=== PATIENT | male | born 1960 | race Caucasian/White ===

== ENCOUNTER → 2016-06-02 | Outpatient (CLI) | payer BC | LOC: GMAJ 10:55 | PROVIDERS: ATTEND Family Medicine | DX: I10 Essential (primary) hypertension (principal) ==

== ENCOUNTER → 2017-07-04 | Outpatient (CLI) | payer BC | LOC: GMAJ 11:23 | PROVIDERS: ATTEND Family Medicine | DX: Z00.00 Encounter for general adult medical examination without abnormal findings (principal) ==

== ENCOUNTER 2018-10-30 09:35 | Emergency (ER) | payer BC ==
--- NOTE | 2018-10-30 09:56 | ED.PDOC ---
History of Present Illness - General Chief Complaint: Chest Pain/[place] Stated Complaint: Chest discomfort, light-headed Time Seen by Provider: 10/30/18 09:35 Source: patient, RN notes reviewed Additional Information: 58 YEAR OLD WHITE MALE PRESENTS WITH CHEST PRESSURE / PAIN DIZZINESS FELT LIKE HE WAS GOING TO PASS OUT THE PRESSURE /DISCOMFORT HE DESCRIBED LASTED LESS THAN A MIN HE CHECKED HIS BLOOD PRESSURE AT THAT TIME IT WAS 156/ 86 HE HAS TAKEN HIS LISINOPRIL JUST SHORTLY PRIOR TO THIS EVENT HE DIS NOT EXPERIENCE ANY HEADACHE NO SHORTNESS OF BREATH NO ABDOMINAL PAIN BUT REPORTS FEW EPISODES OF DIARRHEA PMH HE HAS HTN HAD A CARDIAC CATH 12 YEARS AGO AT [facility] THAT SHOWED MINIMAL DISEASE HE HAS BEEN ON CARVIDALOL ATORVASTATIN AND ASPIRIN HE USED TO BE A HEAVY SMOKER HE STATES HE WORKS AT THE [employer] AND DAYS OFF HE EXERCISED BUT NEVER HAVE EXPERIENCED CHEST PAIN DURING EXERTION HE REPORTS NO ORTHOPNEA NO PND - History of Present Illness Timing/Duration: 1/2 hour Severity: moderate Improving Factors: nothing Associated Symptoms: chest pain, weakness Allergies/Adverse Reactions: Allergies NO KNOWN ALLERGY Allergy (Verified 10/30/18 09:43) Review of Systems - Review of Systems Constitutional: States: see HPI EENTM: States: no symptoms reported Respiratory: States: no symptoms reported Cardiology: States: see HPI Gastrointestinal/Abdominal: States: no symptoms reported Genitourinary: States: no symptoms reported Musculoskeletal: States: no symptoms reported Skin: States: no symptoms reported Neurological: States: no symptoms reported Endocrine: States: no symptoms reported Hematologic/Lymphatic: States: no symptoms reported Past Medical History (General) - Patient Medical History Hx Stroke: No Hx Asthma: Yes - Seasonal allergies Hx Cardiac Disorders: Yes - high cholesterol Hx Congestive Heart Failure: No Hx Hypertension: Yes Hx Diabetes: Yes Hx MRSA: No - Vaccination History Hx Tetanus, Diphtheria Vaccination: Yes - 2016 Hx Influenza Vaccination: Yes - 2018 Hx Pneumococcal Vaccination: Yes - Social History Hx Tobacco Use: Yes - Quit in 2007 Hx Alcohol Use: Yes - Occasional Family Medical History - Family History Father Living Status: Hx Family Congestive Heart Failure: Yes Physical Exam - Physical Exam General Appearance: Alert, Comfortable Eye Exam: bilateral normal Ears, Nose, Throat: hearing grossly normal, normal ENT inspection, normal pharynx Neck: non-tender, full range of motion, supple Respiratory: chest non-tender, lungs clear, normal breath sounds, no respiratory distress Cardiovascular/Chest: normal peripheral pulses, regular rate, rhythm, no edema, no gallop, no JVD Gastrointestinal/Abdominal: normal bowel sounds, non tender, soft, no organomegaly, no pulsatile mass Back Exam: normal inspection, no CVA tenderness, no vertebral tenderness Neurologic: coutierier II-XII nml as tested, no motor/sensory deficits, alert, normal mood/affect, oriented x 3 Progress - Results/Orders Results/Orders: Laboratory Tests 10/30/18 10/30/18 10:28 12:45 WBC 9.6 RBC 4.89 Hgb 15.4 Hct 45.6 MCV 93.2 MCH 31.5 H MCHC 33.8 RDW 13.3 Plt Count 253 MPV 7.9 Absolute Neuts (auto) 5.80 Absolute Lymphs (auto) 2.50 Absolute Monos (auto) 0.50 Absolute Eos (auto) 0.60 H Absolute Basos (auto) 0.10 Neutrophils % 60.8 Lymphocytes % 26.1 Monocytes % 5.7 Eosinophils % 6.5 H Basophils % 0.9 PT 9.7 INR 0.97 PTT (SP) 25.6 Sodium 134 L Potassium 4.1 Chloride 99 L Carbon Dioxide 24 Anion Gap 15.1 BUN 25 H Creatinine 0.83 BUN/Creatinine Ratio 30.1 H Random Glucose 218 H Serum Osmolality 279.3 Calcium 9.5 Magnesium 1.8 Creatine Kinase 142 CK-MB (CK-2) 5.0 H* CK-MB (CK-2) % Not Reportable Troponin I 0.04 0.05 B-Natriuretic Peptide 51.2 THE EKG WAS COMPARED TO OLD EKG 08 22 12 NO SIGNIFICANT CHANGES NOTED PATIENT HAS HAD NO SYMPTOMS HERE IN THE ED 2 SETS OF TROP AT 2 HOUR INTERVAL NEG LOW PROBABILITY FOR ACS AT THIS TIME THIS WAS EXPLAINED AND HE WAS DISCHARGED HOME WITH APPROPRIATE ADVICE Departure - Departure Clinical Impression: Chest pain Time of Disposition: 14:22 Disposition: Discharge to Home or Self Care Condition: Good Departure Forms: ED Discharge - Pt. 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
--- NOTE | 2018-10-30 10:30 | RAD ---
Portable chest INDICATION: Chest pain IMPRESSION: Cardiomegaly borderline for technique. Very mild vascular congestion. No florid failure. No focal infiltrate effusion or pneumothorax. Electronically signed by: French Oneal MD 10/30/2018 10:28 AM CDT
[2018-10-30 11:57] VITALS: TEMP 96.5
[2018-10-30 14:40] VITALS: BP 124/85; O2SAT 95
== END 2018-10-30 14:28 | disposition home or self-care (01) ==
LOC: ER 09:35
DX: R07.89 Other chest pain (principal); R42 Dizziness and giddiness; R53.1 Weakness; J45.909 Unspecified asthma, uncomplicated; E78.00 Pure hypercholesterolemia, unspecified; I10 Essential (primary) hypertension; E11.9 Type 2 diabetes mellitus without complications; Z79.899 Other long term (current) drug therapy; Z87.891 Personal history of nicotine dependence

== ENCOUNTER → 2018-11-08 | Outpatient (CLI) | payer BC ==
--- NOTE | 2018-11-08 16:13 | CT ---
EXAM: CT Head Without Intravenous Contrast CLINICAL HISTORY: 58 years old and is Male; Dizziness TECHNIQUE: Axial computed tomography images of the head/brain without intravenous contrast. Sagittal and coronal reformatted images were created and reviewed. This CT exam was performed using one or more of the following dose reduction techniques: automated exposure control, adjustment of the mA and/or kV according to patient size, and/or use of iterative reconstruction technique. COMPARISON: No relevant prior studies available. FINDINGS: Limitations: None. Brain: Unremarkable. No hemorrhage. No significant white matter disease. No edema. Ventricles: Unremarkable. No ventriculomegaly. Bones/joints: Unremarkable. No acute fracture. Soft tissues: Unremarkable. Sinuses: Minimal chronic left sphenoid sinus thickening noted. Mastoid air cells: Unremarkable as visualized. No mastoid effusion. IMPRESSION: Chronic changes as above. No acute disease. Electronically signed by: Yaritza Peñaloza MD 11/08/2018 4:11 PM CDT
== END ==
LOC: CT 15:45
PROVIDERS: ATTEND Family Medicine
DX: J32.3 Chronic sphenoidal sinusitis (principal)

== ENCOUNTER 2019-01-17 17:32 | Emergency (ER) | payer BC ==
[2019-01-17] MEDS ORDERED: SODIUM CHLORIDE 0.9% (FLUSH) 10 ML SYG IV PRN (17:49)
--- NOTE | 2019-01-17 17:57 | ED.PDOC ---
History of Present Illness - General Stated Complaint: chest tightness and palpitations Time Seen by Provider: 01/17/19 17:49 Source: patient, RN notes reviewed, Vital Signs reviewed Exam Limitations: no limitations - History of Present Illness Timing/Duration: 1-3 hours Severity/Quality: moderate, tightness Location: central Chest Pain Radiation: no radiation Activities at Onset: activity Prior Chest Pain/Cardiac Workup: cardiac cath, stress test Improving Factors: medication - ntg, rest Nitro Today/Relief: 0.4 mg x 1, complete relief Aspirin Treatment Today: no aspirin today Associated Symptoms: denies symptoms Allergies/Adverse Reactions: Allergies NO KNOWN ALLERGY Allergy (Verified 01/17/19 18:04) Review of Systems - Review of Systems Constitutional: States: no symptoms reported EENTM: States: no symptoms reported Respiratory: States: no symptoms reported Cardiology: States: see HPI, palpitations Gastrointestinal/Abdominal: States: no symptoms reported Genitourinary: States: no symptoms reported Musculoskeletal: States: no symptoms reported Skin: States: no symptoms reported Neurological: States: no symptoms reported Endocrine: States: no symptoms reported Hematologic/Lymphatic: States: no symptoms reported All other Systems: Reviewed and Negative Past Medical History (General) - Patient Medical History Hx Stroke: No Hx Asthma: Yes - Seasonal allergies Hx Cardiac Disorders: Yes - high cholesterol Hx Congestive Heart Failure: No Hx Hypertension: Yes Hx Diabetes: Yes Hx MRSA: No - Vaccination History Hx Tetanus, Diphtheria Vaccination: Yes - 2015 Hx Influenza Vaccination: Yes - 2018 Hx Pneumococcal Vaccination: Yes - Social History Hx Tobacco Use: Yes - Quit in 2007 Hx Alcohol Use: Yes - Occasional Family Medical History - Family History Father Living Status: Hx Family Congestive Heart Failure: Yes Mother Living Status: Hx Family Cancer: Yes - Lung Physical Exam - Physical Exam General Appearance: Alert, Comfortable, Obese, Well Developed, Well Groomed, Well Hydrated, Well Nourished Eyes, Ears, Nose, Throat Exam: PERRL/EOMI, pharynx normal Neck: non-tender, full range of motion, supple, normal inspection Respiratory: chest non-tender, lungs clear, normal breath sounds, no respiratory distress, no accessory muscle use Cardiovascular/Chest: normal peripheral pulses, regular rate, rhythm, no edema, no gallop, no JVD, no murmur Gastrointestinal/Abdominal: normal bowel sounds, non tender, soft Extremity: normal range of motion, non-tender, normal inspection Neurologic: corporate vp advertising & online II-XII nml as tested, no motor/sensory deficits, alert, normal mood/affect, oriented x 3 Skin Exam: normal color, warm/dry Progress - Progress Progress: 01/17/19 21:12 ekg @ 1740 hrs: SR with 1deg AV block,LAD, LVH, ant/laterad, Inf infarct Age indeterminate abnormal ekg, unchanged from 10/30/2018 Pt also with elevated troponin. Plan admission. d/w pt and his and they voice understanding and agreement. Anish Shannon M.D. #[id number] - EKG/XRAY/CT Comments: abnormal ekg unchanged from 10/30/18 Departure - Departure Clinical Impression: Elevated troponin I level, Intermittent palpitations Time of Disposition: 23:49 Disposition: Transfer to Hospital Condition: Good Referrals: Kg Givens MD [Primary Care Provider] - 1-2 Weeks
--- NOTE | 2019-01-17 18:38 | RAD ---
EXAM: XR Chest, 1 View CLINICAL HISTORY: palpitations TECHNIQUE: Frontal view of the chest. COMPARISON: 10/30/2018. FINDINGS: Limitations: None. Lungs: Unremarkable. No consolidation. Pleural space: Unremarkable. No pneumothorax. Heart: Stable prominent cardiac shadow. Mediastinum: Unremarkable. Bones/joints: Unremarkable. IMPRESSION: No acute findings. Electronically signed by: Yaritza Peñaloza MD 01/17/2019 6:36 PM CDT
[2019-01-17] MEDS ORDERED: ASPIRIN (CHEWABLE) 81 MG TAB PO ONE (19:03)
[2019-01-18 00:07] VITALS: BP 124/80; TEMP 97; O2SAT 96
== END 2019-01-18 00:14 | disposition short-term general hospital (02) ==
LOC: ER 17:32
DX: R00.2 Palpitations (principal); R79.89 Other specified abnormal findings of blood chemistry; R94.31 Abnormal electrocardiogram [ECG] [EKG]; I44.0 Atrioventricular block, first degree; I51.7 Cardiomegaly; E66.9 Obesity, unspecified; E78.00 Pure hypercholesterolemia, unspecified; I10 Essential (primary) hypertension; E11.9 Type 2 diabetes mellitus without complications; J45.909 Unspecified asthma, uncomplicated; Z87.891 Personal history of nicotine dependence; Z68.41 Body mass index [BMI] 40.0-44.9, adult

== ENCOUNTER 2019-02-05 09:08 | Emergency (ER) | payer BC ==
[2019-02-05 09:32] VITALS: TEMP 97.2
[2019-02-05] MEDS: ASPIRIN TABLET 325 MG TAB PO ONE ×2 (09:41→09:52)
--- NOTE | 2019-02-05 09:52 | ED.PDOC ---
History of Present Illness - General Chief Complaint: Cardiovascular Problem Stated Complaint: Dizziness, low heart rate Time Seen by Provider: 02/05/19 09:17 Source: patient Exam Limitations: no limitations - History of Present Illness Initial Comments: the patient is a 58-year-old male presenting to the emergency room this morning secondary to continued shortness of breath and generalized weakness. Symptoms started yesterday afternoon when the patient was walking around the track. Symptoms started with a feeling of palpitations. No real chest pain. He did have a near syncopal episode. When he is at rest he feels okay however when he gets up to move around he feels short of breath and a little bit dizzy. His blood pressure cuff at home was having a hard time measuring his blood pressures last night and this morning so he presented here for further evaluation. The patient was actually seen here about 3 weeks ago and sent to [facility] due to a mild troponin leak and uncontrolled hypertension. Apparently isosorbide was started on the patient after that visit. The patient does have a history of coronary artery disease. He sees Dr. Holland. the patient appears comfortable at rest here. Telemetry monitoring is showing a wide complex regular bradycardia at 30 bpm with a complete third degree AV block.the patient took a full dose aspirin before arriving here this morning. He also did not take his blood pressure medicines this morning. Timing/Duration: other - about 16 hours Severity: moderate Improving Factors: rest Worsening Factors: movement Associated Symptoms: malaise, shortness of breath, weakness Allergies/Adverse Reactions: Allergies NO KNOWN ALLERGY Allergy (Verified 01/17/19 18:04) Review of Systems - Review of Systems Constitutional: States: malaise, weakness - generalized EENTM: States: no symptoms reported Respiratory: States: short of breath Cardiology: States: palpitations Gastrointestinal/Abdominal: States: no symptoms reported Genitourinary: States: no symptoms reported Musculoskeletal: States: no symptoms reported Skin: States: no symptoms reported Neurological: States: no symptoms reported Endocrine: States: no symptoms reported All other Systems: No Change from Baseline Past Medical History (General) - Patient Medical History Hx Stroke: No Hx Asthma: Yes - Seasonal allergies Hx of COPD: No Hx Cardiac Disorders: Yes - Dyslipidemia Hx Congestive Heart Failure: No Hx Hypertension: Yes Hx Diabetes: Yes Hx Gastroesophageal Reflux: No Hx Cancer: No Hx MRSA: No - Vaccination History Hx Tetanus, Diphtheria Vaccination: Yes - 2016 Hx Influenza Vaccination: Yes - 2018 Hx Pneumococcal Vaccination: Yes - Social History Hx Tobacco Use: No Hx Alcohol Use: No Hx Substance Use: No Hx Substance Use Treatment: No Hx Depression: No - Female History Patient : No Family Medical History - Family History Father Living Status: Hx Family Congestive Heart Failure: Yes Mother Living Status: Hx Family Cancer: Yes - Lung Physical Exam - Physical Exam General Appearance: Alert, Comfortable - he does appear slightly pale., No apparent distress Eye Exam: bilateral normal Ears, Nose, Throat: hearing grossly normal, normal ENT inspection Neck: full range of motion, supple Respiratory: lungs clear, normal breath sounds, no respiratory distress, no accessory muscle use Cardiovascular/Chest: normal peripheral pulses, no edema, other - regular 30 bpm. Peripheral Pulses: radial,right: 2+, radial,left: 2+, dorsalis pedis,right: 2+, dorsalis pedis,left: 2+ Gastrointestinal/Abdominal: non tender - obese, soft Rectal Exam: deferred Back Exam: no CVA tenderness, no vertebral tenderness Extremity: normal range of motion, non-tender, normal inspection, no pedal edema, normal capillary refill Neurologic: turbinated bone grinder II-XII nml as tested, alert, normal mood/affect, oriented x 3 Skin Exam: pallor - mild Comments: Vital Signs - 24 hr 02/05/19 02/05/19 02/05/19 09:11 09:18 09:29 Temperature 97.2 F L Pulse Rate [ 47 L 29 L 29 L Apical] Respiratory 20 Rate Blood Pressure 122/74 [Left Arm] O2 Sat by Pulse 97 Oximetry 02/05/19 09:47 Temperature Pulse Rate [ Apical] Respiratory Rate Blood Pressure [Left Arm] O2 Sat by Pulse 93 L Oximetry Progress - Progress Progress: 02/05/19 10:19 the patient is a 58-year-old male presenting with a third-degree heart block with a regular wide complex escape rhythm at 30 bpm, that likely started yesterday afternoon. He does have some mild congestive heart failure signs on his chest x-ray. He is not hypoxic but I'm placing him on low flow oxygen anyway. His blood pressure medications have been held. By recommendations of his cardiology group he is receiving 1 dose of glucagon as a trial as the patient has been taking Coreg. Troponin is very slightly elevated. It was very slightly elevated 3 weeks ago as well. He is not having any chest pain. He is not in any distress at this time. He is largely asymptomatic when he is not up and moving around. The patient is going to transfer to [facility] for further cardiology evaluation and intervention. Pacing pads are in place in case they become necessary. Atropine, epinephrine or dopamine can also be used if necessary. At this point they are not required. He did receive an aspirin here. I'm not going to add additional blood thinners at this time as there is no definitive acute coronary syndrome and he is possibly going to need a pacemaker placed. Mild elevation of LFTs and mild worsening of renal function are likely testament to poor cardiac output. These will need to be followed as the problem is corrected. transferring for higher level of care. call made for transfer to [facility] at 1005. Critical care time spent excluding otherwise billable procedures is 40 minutes. 02/05/19 10:24 laquita cordon [id number] 02/05/19 10:33 02/05/19 11:14 update,the patient is about to leave for [facility]. He is still largely asymptomatic. Glucagon did not do anything to correct the rhythm. Blood pressures have been slowly but steadily increasing. This is likely his daily blood pressure medications wearing off. slight delay in transfer has been due to availability of EMS. Patient appears stable enough at this time to be transferred by ground. He does have pacer pads in place in case they become necessary. EMS does have epinephrine and atropine available if necessary. - Results/Orders Results/Orders: EKG shows a wide complex rhythm at 30 bpm with a complete third degree AV block. Difficult to interpret otherwise. Significantly different from his EKG from 3 weeks ago. chest x-ray does show some cardiomegaly and pulmonary vascular congestion. Laboratory Results - last 24 hr 02/05/19 02/05/19 02/05/19 09:30 09:30 09:30 WBC 10.7 RBC 4.63 L Hgb 14.7 Hct 43.3 MCV 93.6 MCH 31.8 H MCHC 34.0 RDW 13.7 Plt Count 260 MPV 8.2 Absolute Neuts (auto) 6.50 Absolute Lymphs (auto) 3.10 Absolute Monos (auto) 0.70 Absolute Eos (auto) 0.30 Absolute Basos (auto) 0.20 H Neutrophils % 60.8 Lymphocytes % 29.0 Monocytes % 6.1 Eosinophils % 2.6 Basophils % 1.5 PT 9.9 INR 0.99 PTT (SP) 26.7 D-Dimer, Quantitative 0.51 H* Sodium 133 L Potassium 4.2 Chloride 99 L Carbon Dioxide 21 Anion Gap 17.2 BUN 51 H Creatinine 1.68 H BUN/Creatinine Ratio 30.4 H Random Glucose 198 H Serum Osmolality 285.6 Calcium 9.1 Magnesium Total Bilirubin 0.7 AST 110 H ALT 116 H Alkaline Phosphatase 61 Creatine Kinase 229 H* CK-MB (CK-2) 6.3 H* CK-MB (CK-2) % 2.75 Troponin I 0.07 H* B-Natriuretic Peptide 290.0 H* Serum Total Protein 7.2 Albumin 3.9 Globulin 3.3 Albumin/Globulin Ratio 1.2 02/05/19 09:30 WBC RBC Hgb Hct MCV MCH MCHC RDW Plt Count MPV Absolute Neuts (auto) Absolute Lymphs (auto) Absolute Monos (auto) Absolute Eos (auto) Absolute Basos (auto) Neutrophils % Lymphocytes % Monocytes % Eosinophils % Basophils % PT INR PTT (SP) D-Dimer, Quantitative Sodium Potassium Chloride Carbon Dioxide Anion Gap BUN Creatinine BUN/Creatinine Ratio Random Glucose Serum Osmolality Calcium Magnesium 2.2 Total Bilirubin AST ALT Alkaline Phosphatase Creatine Kinase CK-MB (CK-2) CK-MB (CK-2) % Troponin I B-Natriuretic Peptide Serum Total Protein Albumin Globulin Albumin/Globulin Ratio Departure - Departure Clinical Impression: Third degree heart block, Bradycardia Congestive heart failure Qualifiers: Heart failure type: unspecified Heart failure chronicity: acute Qualified Code(s): I50.9 - Heart failure, unspecified Acute renal failure Qualifiers: Acute renal failure type: unspecified Qualified Code(s): N17.9 - Acute kidney failure, unspecified Disposition: Transfer to Hospital Departure Forms: ED Discharge - Pt. Copy, Patient Portal Self Enrollment Instructions: DI for Chest Pain Referrals: Kg Givens MD [Primary Care Provider] - 1-2 Weeks Transfer to Outside Facility - Transfer Information Accepting Provider:: dr weaver Accepting Facility: [facility] Reason for Transfer: required specialist not available
--- NOTE | 2019-02-05 09:58 | RAD ---
EXAM DESCRIPTION: Chest,1 View CLINICAL HISTORY: Shortness of breath, weakness COMPARISON: Test radiograph dated January 17, 2019 TECHNIQUE: Single upright portable frontal view of the chest FINDINGS: Cardiac silhouette shows cardiomegaly with central pulmonary vascular congestion. Subtle increased airspace opacities in the bilateral lower lung zones may represent early pulmonary edema. Underlying infiltrate cannot be entirely excluded. No significant pleural effusion. No pneumothorax. No acute osseous abnormality. IMPRESSION: 1. Cardiomegaly with central pulmonary vascular congestion, compatible with congestive heart failure. 2.Subtle increased airspace opacities bilateral lower lung zones most likely represent early pulmonary edema. Underlying infiltrate cannot be entirely excluded. Electronically signed by: Maksim Rios MD 02/05/2019 9:56 AM CDT
[2019-02-05] MEDS ORDERED: GLUCAGON INJ 1 MG VIAL ONE (10:17)
[2019-02-05] MEDS ORDERED: GLUCAGON INJ 1 MG VIAL IV ONE (10:52)
[2019-02-05 11:49] VITALS: BP 122/60; O2SAT 96
== END 2019-02-05 11:10 | disposition short-term general hospital (02) ==
LOC: ER 09:08
DX: I44.2 Atrioventricular block, complete (principal); R00.1 Bradycardia, unspecified; I50.9 Heart failure, unspecified; N17.9 Acute kidney failure, unspecified; R06.02 Shortness of breath; E11.9 Type 2 diabetes mellitus without complications; I11.0 Hypertensive heart disease with heart failure; J45.909 Unspecified asthma, uncomplicated; E78.5 Hyperlipidemia, unspecified
CPT/HCPCS: 36415; 71045; 80053; 82550; 82553; 83735; 83880; 84443; 84484; 85025; 85379; 85610; 85730; 93005; J1610

== ENCOUNTER → 2019-08-27 | Outpatient (CLI) | payer BC | LOC: GMAJ 11:22 | PROVIDERS: ATTEND Family Medicine | DX: Z12.5 Encounter for screening for malignant neoplasm of prostate (principal); E11.9 Type 2 diabetes mellitus without complications; E78.2 Mixed hyperlipidemia; I50.9 Heart failure, unspecified ==

== ENCOUNTER → 2020-01-09 | Outpatient (CLI) | payer BC | LOC: GMAJ 14:35 | PROVIDERS: ATTEND Family Medicine | DX: I10 Essential (primary) hypertension (principal); Z13.29 Encounter for screening for other suspected endocrine disorder; I50.22 Chronic systolic (congestive) heart failure; E78.00 Pure hypercholesterolemia, unspecified ==

== ENCOUNTER → 2020-04-18 | Outpatient (CLI) | payer BC ==
--- NOTE | 2020-04-19 09:01 | RAD ---
EXAMINATION: Chest x-ray 2 views. INDICATION: Cough. COMPARISON: February 05, 2019 TECHNIQUE: Frontal and lateral radiographs of the chest. FINDINGS: Left chest wall cardiac device with 2 leads, new from prior The cardiac silhouette is enlarged and stable No focal consolidative process. There is no pneumothorax. Bones are grossly intact. IMPRESSION: Stable cardiomegaly. Electronically signed by: Hayden Bartlett MD 04/19/2020 8:59 AM [facility]
== END ==
LOC: RAD 16:21
PROVIDERS: ATTEND Family Medicine
DX: R05 Cough (principal); I51.7 Cardiomegaly